=== PATIENT | female | born 2000 | race Caucasian/White ===

== ENCOUNTER 2019-03-29 23:47 | Emergency (ER) | payer MEDICAID ==
[~2019-03-29] VITALS: Ht 160 cm; Wt 52.2 kg
[2019-03-29 23:58] VITALS: BP 148/86
== END 2019-03-30 00:49 | disposition left against medical advice (07) ==
LOC: ER 23:53
DX: R07.81 Pleurodynia (principal); Z53.21 Procedure and treatment not carried out due to patient leaving prior to being seen by health care provider